=== PATIENT | female | born 1955 | race American Indian/Alaskan Native ===

== ENCOUNTER 2024-05-10 15:18 | Emergency (ER) | payer OTHER, SELFPAY ==
[2024-05-10 15:30] VITALS: BP 145/88
[2024-05-10 15:50] VITALS: BP 151/67
[2024-05-10 15:59] LABS: % Basophils 0.5 % (0-2); % Eosinophils 0.7 % (0-6); % Immature Granulocytes 0.5 % (0-0.5); % Lymphocytes 20.3 % (20.5-51.1); % Monocytes 7.2 % (1.7-9.3); % Neutrophils 70.8 % (42.2-75.2); Absolute Eosinophils 0.1 10^3/uL (0-0.7); Absolute Lymphocytes 1.7 10^3/uL (1.2-3.4); Absolute Monocytes 0.6 10^3/uL (0.1-0.6); Hematocrit 43.1 % (37.0-47.0); Hemoglobin 14.4 g/dL (12.0-16.0); Mean Corp Hgb Conc. 33.4 g/dL (33.0-37.0); Mean Corpuscular Hgb 28.3 pg (27.0-31.0); Mean Corpuscular Volume 84.8 fL (81.0-99.0); Mean Platelet Volume 10.7 fL (7.4-10.4); Nucleated Red Blood Cells % 0 %; Platelet Count 333 10^3/uL (130-400); Red Blood Cell Count 5.08 10^6/uL (4.20-5.40); White Blood Cell Count 8.5 10^3/uL (4.8-10.8)
[2024-05-10 16:00] VITALS: BP 146/80
[2024-05-10 16:02] LABS: Urine Albumin Negative (Neg - Trace); Urine Bilirubin Negative (Negative); Urine Character Clear (Clear); Urine Color Yellow; Urine Glucose Negative (Negative); Urine Ketone Negative (Negative); Urine Leukocyte 1+ (Negative); Urine Nitrite Negative (Negative); Urine Occult Blood Trace (Negative); Urine Urobilinogen Negative (Neg - 1+)
--- NOTE | 2024-05-10 16:06 | ED.GENMED ---
History of Present Illness
General
Chief Complaint: Abdominal Pain
Source: patient
Time Seen by Provider: 05/10/24 15:39
History of Present Illness
History of Present Illness:
69-year-old female presents to the emergency room by ambulance for evaluation of epigastric and chest discomfort. Patient's been having this discomfort intermittently for the past 3 or 4 days. Patient attends a adult daycare and the position for
this adult daycare is accompanying her to the emergent today he is able to translate and provide history. Patient states the pain is intermittent. She has been suffering from some constipation. She did have a bowel movement today but it was
'small and hard'. She has not taken any laxatives or stool softeners. She cannot relate the epigastric discomfort to any particular food but states just in general when she eats it seems to come back. She denies vomiting. She denies shortness of
breath. The pain does not seem to get worse with exertion. She denies alcohol or cigarette use.
Past History
Past History
ED Past Medical History: None
ED Past Surgical History: Gynecological
Social History
Tobacco: Non-smoker
Alcohol: None
Living: with family
Phy Exam
Physical Exam
Physical Exam:
General: Awake, Alert, Oriented X3. No acute distress.
Vitals: unremarkable
Head: Atraumatic
Eyes: Pupils equal, EOMI
Throat: Airway intact, no exudates
Neck: Trachea midline
Lungs: Clear and equal b/l
Heart: Regular rate, no murmurs
Abd: Soft, mild upper abdominal pain, No pulsatile mass
Neuro: Nonfocal
Skin: Warm, dry, no rash
Extremities: pulses equal b/l, no edema
Course
Orders/Labs/Results
Orders:
Orders
05/10/24 15:43
Electrocardiogram (*1) Urgent
Reason for Study: Tachycardia
EKG- Treatment ONCE
05/10/24 15:46
Complete Blood Count/With Diff Urgent
Comprehensive Metabolic Panel Urgent
Lipase Urgent
Comment: ADD ON
Troponin I Urgent
Urinalysis Reflex To Culture Urgent
Date Specimen was Collected: 05/10/24
Time Specimen was Collected: 15:42
Urine Microscopic Reflex Cult Urgent
Urine Culture Urgent
SHAAN Source: U
Specimen Description:
Date Specimen was Collected: 05/10/24
Time Specimen was Collected: 15:42
05/10/24 16:05
Add On- LAB Urgent
Tests Added?: lipase
CR Chest - 2 Views Urgent
Comment:
Reason For Exam: epigastric pain
US Abdomen Complete/Upper Urgent
Comment:
Reason For Exam: epigastric pain
Abnormal Lab Results
05/10/24
15:46
MPV 10.7 H fL
(7.4-10.4)
Lymphocytes % 20.3 L %
(20.5-51.1)
Glucose 171 H mg/dl
(70-99)
Ur Occult Blood Reflex Trace A
(Negative)
Leukocyte Esterase Rfl 1+ A
(Negative)
Urine RBC 3-6 A /HPF
(0-2)
Urine Bacteria (Reflex) Few A
(Negative)
05/10/24 15:46
05/10/24 15:46
Vital Signs
Initial and Last Documented VS:
Initial Vital Signs
Pulse Resp
107 18
05/10/24 15:23 05/10/24 15:23
Last Documented Vital Signs
Temp Pulse Resp BP Pulse Ox
98.3 F 74 18 142/78 98
05/10/24 15:50 05/10/24 19:31 05/10/24 19:31 05/10/24 19:31 05/10/24 19:31
MDM/Problems Addressed
Differential Diagnosis Includes:
Pancreatitis, cholecystitis, angina, constipation
MDM/Problems Addressed:
Patient presents after having epigastric pain earlier today. No pain at the time my evaluation. EKG shows ischemic changes. Labs are unremarkable. Ultrasound shows fatty liver but no acute findings. Patient is symptom-free at the time of
reevaluation at about 7 PM. Discussed use of MiraLAX for constipation. Family member brought up the fact it seems like she has more of this indigestion/burping/epigastric pain when she feels her pulse is fast. The possibility of paroxysmal A-fib
was entertained. Again the patient is in normal sinus rhythm now. Family made an appointment with cardiology next week. Feel the next best step is for her to see cardiology possibly having.
*Radiology
Radiology exam reviewed: radiology read reviewed
*Pulse Oximetry
Patient hypoxic: no
*EKG
Interpreted by ED Provider?: Yes
Heart Rate: 95
Rate: normal
Rhythm: sinus
[place]: normal axis and left axis deviation
QRS Pattern: wide non-specific
Ischemia: no ischemia
*Resource Room Teacher Interpretation
Rate: normal
Rhythm: sinus
*Critical Care Note
Total Time (30-74mins, 75-104mins- exclusive of procedures): Not Applicable
Patient Management
Social determinants of health affecting care: Strong social support
ED Attending Note
-
Portions of this chart may have been created with voice recognition software.� Occasional wrong word or��sound alike� substitutions may have occurred due to the inherent limitations of voice recognition software.
Discharge Plan
Departure
Patient Disposition: Home (Routine Discharge)
Date of Disposition: 05/10/24
Time of Disposition: 19:03
Patient with high blood pressure during this ER visit?: Yes
Condition: Good
Discharge Problem:
Acute epigastric pain
Instructions: Palpitations ED, Abdominal Pain
Prescriptions:
No Action
No Current Medications
Referrals:
Francesco Nixon MD [Family Provider] -
Activity Restrictions/Additional Instructions:
Please take Miralax once a day for your constipation. You should follow up with cardiology as an outpatient (which your daughter has scheduled). Return to the ER if your symptomms return .
Interventions
Interventions:
*Risk Screen - Suicide Last Done: 05/10/24 17:00
*General Assessment Last Done: 05/10/24 17:00
*Neglect/Abuse Screening Last Done: 05/10/24 17:00
*ED COVID-19 Vaccine History Last Done: 05/10/24 17:00
*Nursing Disposition Last Done: 05/10/24 19:33
[place]slpxy[facility] Assessment Last Done: 05/10/24 15:45
Discharge Date and Time
Discharge Date/Time: 05/10/24 19:34
Print Language: [id number]
[2024-05-10 16:10] LABS: ALT (SGPT) 17 U/L (0-35); AST (SGOT) 29 U/L (14-36); Albumin 4.6 g/dl (3.5-5.0); Alkaline Phosphatase 73 U/L (38-126); Blood Urea Nitrogen 17 mg/dl (7-17); Calcium 10.2 mg/dl (8.4-10.2); Carbon Dioxide 26 mmol/L (22-30); Chloride 103 mmol/L (98-107); Glucose 171 mg/dl (70-99); Potassium 4.4 mmol/L (3.5-5.1); Sodium 143 mmol/L (135-145); Total Bilirubin 0.5 mg/dl (0.2-1.3); Total Protein 8.1 g/dl (6.3-8.2); eGFR > 60.00
[2024-05-10 16:18] LABS: Urine Urothelial Cell 0-2 /LPF (FEW)
[2024-05-10 16:19] LABS: Urine Bacteria Few (Negative)
[2024-05-10 16:20] LABS: Troponin I < 0.012 ng/ml
[2024-05-10 16:43] LABS: Lipase 207 U/L (23-300)
[2024-05-10 17:00] VITALS: BP 140/88
[2024-05-10 19:31] VITALS: BP 142/78
== END 2024-05-10 19:34 | disposition home or self-care (01) ==
LOC: EMR 15:18
PROVIDERS: EMERGENCY PHYSICIAN Emergency Medicine; FAMILY PHYSICIAN Internal Medicine
DX: R10.13 Epigastric pain (principal); K59.00 Constipation, unspecified
CPT/HCPCS: 99284; 71046; 76700; 80053; 81003; 81015; 83690; 84484; 85025; 87086; 93005